=== PATIENT | male | born 1990 | race Caucasian/White ===

== ENCOUNTER 2018-09-05 17:59 | Emergency (ER) | payer BC ==
[~2018-09-05] VITALS: Ht 167.6 cm; Wt 81.6 kg
[2018-09-05 18:22] VITALS: BP 119/72
[2018-09-05] MEDS ORDERED: TDAP [DIPH/PERTUSSIS/TET] 0.5 ML VIAL IM ONE ×2 (18:30→18:52)
[2018-09-05] MEDS ORDERED: LIDOCAINE 1% INJ 50 ML MDV IJ ONE (18:30)
--- NOTE | 2018-09-05 19:23 | NUR ---
SUTURING DONE BY AALNA FIELD NP.
--- NOTE | 2018-09-05 20:35 | NUR ---
Patient discharged to home in stable condition. Written and verbal after care instructions given. Patient verbalizes understanding of instruction.
== END 2018-09-05 20:36 | disposition home or self-care (01) ==
LOC: ER 18:06
DX: S91.311A Laceration without foreign body, right foot, initial encounter (principal); W22.8XXA Striking against or struck by other objects, initial encounter; Y93.89 Activity, other specified; Y92.89 Other specified places as the place of occurrence of the external cause; Y99.8 Other external cause status
CPT/HCPCS: 12002; 73630; 90471; 90715; 99283; A6402